=== PATIENT | female | born 1975 | race Caucasian/White ===

== ENCOUNTER 2016-11-22 16:15 | Emergency (ER) | payer OTHER ==
[2016-03-19 13:08] VITALS: BMI 26.9
[~2016-11-22 16:15] MED LIST: BENTYL 20 MG TA20 MG; BENTYL 20 MG TA20 MG PO; ESGIC TABLET1 TAB PO; FLAGYL500 MG PO; FLORAJEN3 CAPS460 MG PO; HYDROCODONE-APA1 TAB PO; KLONOPIN0.5 MG PO; LEVAQUIN750 MG PO; PREVACID15 MG PO; RESTORIL15 MG PO; TYLENOL #4 W/CO1 TAB PO; ULTRAM50 MG PO; VANCOMYCIN250 MG/51 PO; ZOFRAN8 MG PO
== END 2016-11-22 18:01 | disposition home or self-care (01) ==
LOC: D.ER 16:15
DX: G43.909 Migraine, unspecified, not intractable, without status migrainosus (principal)

== ENCOUNTER → 2016-11-30 08:16 | Outpatient (CLI) | payer OTHER ==
[2016-03-19 13:08] VITALS: BMI 26.9
== END | disposition home or self-care (01) ==
LOC: D.NM 08:16
DX: R10.11 Right upper quadrant pain (principal)

== ENCOUNTER → 2016-12-06 10:34 | Outpatient (CLI) | payer OTHER ==
[2016-03-19 13:08] VITALS: BMI 26.9
== END | disposition home or self-care (01) ==
LOC: D.NM 10:34
DX: R10.11 Right upper quadrant pain (principal)

== ENCOUNTER 2017-06-01 17:24 | Emergency (ER) | payer OTHER ==
[2016-03-19 13:08] VITALS: BMI 26.9
[2017-06-01 17:46] LABS: APPEARANCE HAZY (CLEAR); COLOR YELLOW (YELLOW); GLUCOSE NEGATIVE (NEGATIVE); NITRITE NEGATIVE (NEGATIVE); PROTEIN NEGATIVE (NEGATIVE); SPECIFIC GRAVITY 1.005 (1.005-1.020)
[2017-06-01 17:47] LABS: BILIRUBIN NEGATIVE (NEGATIVE); KETONE NEGATIVE (NEGATIVE); UROBILINOGEN NORMAL (NORMAL)
[2017-06-01 18:04] LABS: BASOPHILS 0.2 % (0-2); EOSINOPHILS 0.8 % (0-7); HEMATOCRIT 35.3 % (36.0-48.0); HEMOGLOBIN 11.3 g/dL (12-16); IMMATURE GRANULOCYTES 0.4 % (0-5); LYMPHOCYTES 6.7 % (15-50); MCH 29.3 pg (26.0-34.0); MCV 91.5 fL (80.0-100.0); MEAN PLATELET VOLUME 10.2 fL (7.4-10.4); MONOCYTES 6.8 % (2-11); NEUTROPHILS 85.1 % (40-80); PLATELET COUNT 307 10x3/uL (130-400); RBC 3.86 10x6/uL (4.00-5.40); RDW 13.5 % (11.5-14.5); WBC 9.3 10x3/uL (4.8-10.8)
[2017-06-01 18:17] LABS: ALBUMIN 3.3 g/dL (3.4-5.0); ANION GAP 9.6 mmol/L (8-16); BILIRUBIN - TOTAL 0.2 mg/dL (0.2-1.3); CALCIUM 9.1 mg/dL (8.5-10.1); CARBON DIOXIDE 29.5 mmol/L (21.0-32.0); CREATININE - SERUM 0.9 mg/dL (0.6-1.3); POTASSIUM - SERUM 3.1 mmol/L (3.5-5.1); PROTEIN - SERUM 7.6 g/dL (6.4-8.2)
[2017-06-01 18:21] LABS: AMYLASE - SERUM 37 U/L (25-115); LIPASE 131 U/L (73-393)
== END 2017-06-01 19:10 | disposition home or self-care (01) ==
LOC: D.ER 17:24
PROVIDERS: Family Medicine; Nurse Practitioner Family
DX: B34.9 Viral infection, unspecified (principal); R05 Cough; R11.10 Vomiting, unspecified; I10 Essential (primary) hypertension

== ENCOUNTER 2017-06-03 08:07 | Emergency (ER) | payer OTHER ==
[2016-03-19 13:08] VITALS: BMI 26.9
== END 2017-06-03 09:11 | disposition home or self-care (01) ==
LOC: D.ER 08:07
DX: J09.X2 Influenza due to identified novel influenza A virus with other respiratory manifestations (principal); I10 Essential (primary) hypertension

== ENCOUNTER 2017-07-11 10:27 | Emergency (ER) | payer OTHER ==
[2016-03-19 13:08] VITALS: BMI 26.9
== END 2017-07-11 13:24 | disposition home or self-care (01) ==
LOC: D.ER 10:27
DX: J20.9 Acute bronchitis, unspecified (principal); F17.200 Nicotine dependence, unspecified, uncomplicated

== ENCOUNTER 2018-01-04 13:36 | Emergency (ER) | payer OTHER ==
[~2018-01-04] VITALS: Ht 165.1 cm; Wt 77.3 kg
[2018-01-04 13:48] VITALS: BP 121/83; Ht 165.1 cm; Wt 77.3 kg
[2018-01-04] MEDS ORDERED: EFFEXOR75 MG PO (13:52)
[2018-01-04] MEDS ORDERED: LISINOPRIL-HCTZ1 TA2 PO (13:53)
[2018-01-04 14:13] LABS: APPEARANCE CLOUDY (CLEAR); BILIRUBIN NEGATIVE (NEGATIVE); COLOR PINK (YELLOW); GLUCOSE NEGATIVE (NEGATIVE); KETONE NEGATIVE (NEGATIVE); NITRITE NEGATIVE (NEGATIVE); PROTEIN TRACE mg/dL (NEGATIVE); SPECIFIC GRAVITY 1.005 (1.005-1.020); UROBILINOGEN NORMAL (NORMAL)
[2018-01-04 14:14] LABS: WHITE CELLS - URINE 0-5 /hpf (0-5)
[2018-01-04 14:15] LABS: BACTERIA FEW /hpf (NONE SEEN); EPITHELIAL CELLS 0-5 /hpf (0-5)
[2018-01-04 14:18] LABS: BASOPHILS 0.7 % (0-2); EOSINOPHILS 0.2 % (0-7); HEMATOCRIT 33.1 % (36.0-48.0); HEMOGLOBIN 10.5 g/dL (12-16); IMMATURE GRANULOCYTES 0.2 % (0-5); LYMPHOCYTES 25.8 % (15-50); MCH 26.4 pg (26.0-34.0); MCHC 31.7 g/dL (31.0-37.0); MCV 83.4 fL (80.0-100.0); MEAN PLATELET VOLUME 9.7 fL (7.4-10.4); MONOCYTES 6.8 % (2-11); NEUTROPHILS 66.3 % (40-80); PLATELET COUNT 272 10x3/uL (130-400); RBC 3.97 10x6/uL (4.00-5.40); RDW 15.2 % (11.5-14.5); WBC 9.7 10x3/uL (4.8-10.8)
[2018-01-04 14:33] LABS: ANION GAP 12.3 mmol/L (8-16); BILIRUBIN - TOTAL 0.29 mg/dL (0.2-1.3); CALCIUM 9.3 mg/dL (8.5-10.1); CARBON DIOXIDE 28.9 mmol/L (21.0-32.0); POTASSIUM - SERUM 3.2 mmol/L (3.5-5.1); PROTEIN - SERUM 8.7 g/dL (6.4-8.2)
== END 2018-01-04 15:30 | disposition home or self-care (01) ==
LOC: D.ER 13:36
PROVIDERS: Emergency Medicine
DX: R10.9 Unspecified abdominal pain (principal)

== ENCOUNTER 2018-02-03 18:11 | Inpatient (IN) | payer OTHER ==
[~2018-02-03] VITALS: Ht 165.1 cm; Wt 77.1 kg
[~2018-02-03 18:11] MED LIST changes: +EFFEXOR75 MG PO; +LISINOPRIL-HCTZ1 TA2 PO
[2018-02-03 19:00] VITALS: BP 131/89
[2018-02-03 19:09] LABS: BASOPHILS 0.4 % (0-2); EOSINOPHILS 0.1 % (0-7); HEMATOCRIT 36.6 % (36.0-48.0); HEMOGLOBIN 11.8 g/dL (12-16); IMMATURE GRANULOCYTES 0.4 % (0-5); LYMPHOCYTES 21.7 % (15-50); MCH 27.3 pg (26.0-34.0); MCHC 32.2 g/dL (31.0-37.0); MCV 84.5 fL (80.0-100.0); MEAN PLATELET VOLUME 9.9 fL (7.4-10.4); NEUTROPHILS 70.4 % (40-80); RBC 4.33 10x6/uL (4.00-5.40); RDW 16.7 % (11.5-14.5); WBC 15.4 10x3/uL (4.8-10.8)
[2018-02-03 19:12] LABS: PLATELET COUNT 327 10x3/uL (130-400)
[2018-02-03 19:38] LABS: ALBUMIN 4.1 g/dL (3.4-5.0); ANION GAP 13.3 mmol/L (8-16); BILIRUBIN - TOTAL 0.32 mg/dL (0.2-1.3); CALCIUM 9.7 mg/dL (8.5-10.1); CARBON DIOXIDE 26.9 mmol/L (21.0-32.0); CREATININE - SERUM 0.9 mg/dL (0.6-1.3); POTASSIUM - SERUM 3.2 mmol/L (3.5-5.1); PROTEIN - SERUM 8.4 g/dL (6.4-8.2)
[2018-02-03 20:00] VITALS: BP 146/92
[2018-02-03 22:18] LABS: APPEARANCE CLEAR (CLEAR); COLOR YELLOW (YELLOW); GLUCOSE NEGATIVE (NEGATIVE); NITRITE NEGATIVE (NEGATIVE); PROTEIN NEGATIVE (NEGATIVE)
[2018-02-03 22:19] LABS: BILIRUBIN NEGATIVE (NEGATIVE); KETONE SMALL mg/dL (NEGATIVE); UROBILINOGEN NORMAL (NORMAL)
[2018-02-03 22:21] LABS: BACTERIA FEW /hpf (NONE SEEN); RED CELLS - URINE 0-5 /hpf (0-5); WHITE CELLS - URINE 0-5 /hpf (0-5)
[2018-02-03 22:30] LABS: UDS - AMPHET NEGATIVE QUAL (NEGATIVE); UDS - BARB NEGATIVE QUAL (NEGATIVE); UDS - BENZO NEGATIVE QUAL (NEGATIVE); UDS - COCAINE NEGATIVE QUAL (NEGATIVE); UDS - OPIATE POSITIVE QUAL (NEGATIVE); UDS - PCP NEGATIVE QUAL (NEGATIVE); UDS - THC NEGATIVE QUAL (NEGATIVE)
[2018-02-04] VITALS (7 sets, daily range): BP systolic 134–154; BP diastolic 92–106
[2018-02-04 06:30] LABS: BASOPHILS 0.2 % (0-2); EOSINOPHILS 0 % (0-7); HEMATOCRIT 33.1 % (36.0-48.0); HEMOGLOBIN 10.6 g/dL (12-16); IMMATURE GRANULOCYTES 0.3 % (0-5); LYMPHOCYTES 14.4 % (15-50); MCH 26.7 pg (26.0-34.0); MCV 83.4 fL (80.0-100.0); MEAN PLATELET VOLUME 9.6 fL (7.4-10.4); MONOCYTES 5.7 % (2-11); NEUTROPHILS 79.4 % (40-80); PLATELET COUNT 306 10x3/uL (130-400); RBC 3.97 10x6/uL (4.00-5.40); RDW 16.7 % (11.5-14.5); WBC 12.8 10x3/uL (4.8-10.8)
[2018-02-04 06:46] LABS: ALBUMIN 3.5 g/dL (3.4-5.0); ALKALINE PHOSPHATASE 68 U/L (46-116); ALT (SGPT) 27 U/L (10-68); BILIRUBIN - TOTAL 0.36 mg/dL (0.2-1.3); CALC OSMOLALITY 268 mosm/kg (275-300); CARBON DIOXIDE 27.7 mmol/L (21.0-32.0); CHLORIDE - SERUM 100 mmol/L (98-107); CREATININE - SERUM 0.8 mg/dL (0.6-1.3); GLUCOSE 111 mg/dL (74-106); POTASSIUM - SERUM 3.3 mmol/L (3.5-5.1); PROTEIN - SERUM 7.9 g/dL (6.4-8.2); SODIUM 135 mmol/L (136-145); UREA NITROGEN 7 mg/dL (7-18); eGFR NON AFRICAN AMERICAN 83 mL/min (90-120)
[2018-02-04 16:48] LABS: % SATURATION 13 % (15-55); IRON 53 ug/dl (35-150); TOTAL IRON BIND CAPACITY 390 ug/dl (260-445); UNSAT IRON BIND CAPACITY 337 ug/dl (150-375)
[2018-02-05] VITALS: BP 138/93
[2018-02-05 04:57] VITALS: BP 128/90
[2018-02-05 07:20] LABS: BASOPHILS 0.5 % (0-2); EOSINOPHILS 0.5 % (0-7); HEMATOCRIT 29.1 % (36.0-48.0); HEMOGLOBIN 9.2 g/dL (12-16); IMMATURE GRANULOCYTES 0.2 % (0-5); LYMPHOCYTES 25.4 % (15-50); MCH 26.8 pg (26.0-34.0); MCHC 31.6 g/dL (31.0-37.0); MCV 84.8 fL (80.0-100.0); MEAN PLATELET VOLUME 9.7 fL (7.4-10.4); NEUTROPHILS 65.4 % (40-80); PLATELET COUNT 261 10x3/uL (130-400); RBC 3.43 10x6/uL (4.00-5.40); RDW 16.9 % (11.5-14.5); WBC 9.6 10x3/uL (4.8-10.8)
[2018-02-05 07:35] LABS: BILIRUBIN - TOTAL 0.33 mg/dL (0.2-1.3); CALCIUM 8.7 mg/dL (8.5-10.1); CARBON DIOXIDE 32.2 mmol/L (21.0-32.0); CREATININE - SERUM 0.9 mg/dL (0.6-1.3); MAGNESIUM - SERUM 1.9 mg/dL (1.8-2.4); POTASSIUM - SERUM 3.2 mmol/L (3.5-5.1); PROTEIN - SERUM 6.4 g/dL (6.4-8.2)
[2018-02-05 08:16] VITALS: BP 137/92
[2018-02-05 12:01] VITALS: BP 111/70
[2018-02-05 13:25] VITALS: Ht 165.1 cm; Wt 77.1 kg
[2018-02-05] MEDS ORDERED: VANCOMYCIN250 MG/51 PO (14:00)
[2018-02-05] MEDS ORDERED: FLAGYL500 MG PO (14:02)
[2018-02-06 08:21] LABS: FOLATE (FOLIC ACID) - SERUM 15.6 ng/mL (>3.0)
== END 2018-02-05 17:24 | disposition home or self-care (01) | DRG 372 ==
LOC: D.ER 18:11 → D.MS 21:19
PROVIDERS: Family Medicine; Internal Medicine Gastroenterology; Internal Medicine Nephrology
DX: A04.71 Enterocolitis due to Clostridium difficile, recurrent (principal); E87.1 Hypo-osmolality and hyponatremia; M62.89 Other specified disorders of muscle; I10 Essential (primary) hypertension; F41.9 Anxiety disorder, unspecified; K21.9 Gastro-esophageal reflux disease without esophagitis; R16.0 Hepatomegaly, not elsewhere classified; K44.9 Diaphragmatic hernia without obstruction or gangrene; D50.9 Iron deficiency anemia, unspecified; E87.6 Hypokalemia

== ENCOUNTER 2018-06-17 20:12 | Emergency (ER) | payer OTHER ==
[~2018-06-17] VITALS: Ht 165.1 cm; Wt 79.5 kg
[2018-06-17 20:19] VITALS: Ht 165.1 cm; Wt 79.5 kg
[2018-06-17] MEDS ORDERED: VOLTAREN75 MG PO (21:33)
[2018-06-17 22:17] VITALS: BP 154/105
== END 2018-06-17 22:19 | disposition home or self-care (01) ==
LOC: D.ER 20:12
DX: K04.7 Periapical abscess without sinus (principal); K08.89 Other specified disorders of teeth and supporting structures; R51 Headache; I10 Essential (primary) hypertension

== ENCOUNTER 2018-08-03 01:42 | Emergency (ER) | payer OTHER ==
[~2018-08-03] VITALS: Ht 165.1 cm; Wt 75.0 kg
[~2018-08-03 01:42] MED LIST changes: +VOLTAREN75 MG PO
[2018-08-03 01:46] VITALS: Ht 165.1 cm; Wt 75.0 kg
[2018-08-03] MEDS ORDERED: TYLENOL W/CODEI1 TAB PO (02:12)
[2018-08-03 02:50] VITALS: BP 138/85
== END 2018-08-03 02:45 | disposition home or self-care (01) ==
LOC: D.ER 01:42
DX: K04.7 Periapical abscess without sinus (principal); I10 Essential (primary) hypertension; K21.9 Gastro-esophageal reflux disease without esophagitis

== ENCOUNTER 2018-08-09 16:42 | Emergency (ER) | payer OTHER ==
[~2018-08-09] VITALS: Ht 165.1 cm; Wt 79.6 kg
[~2018-08-09 16:42] MED LIST changes: +TYLENOL W/CODEI1 TAB PO
[2018-08-09 16:55] VITALS: Ht 165.1 cm; Wt 79.6 kg
[2018-08-09] MEDS ORDERED: TALWIN NX1 TAB PO (17:40)
[2018-08-09] MEDS ORDERED: CLEOCIN HCL300 MG PO (17:40)
[2018-08-09 18:19] VITALS: BP 128/69
== END 2018-08-09 18:19 | disposition home or self-care (01) ==
LOC: D.ER 16:42
DX: K04.7 Periapical abscess without sinus (principal); K08.89 Other specified disorders of teeth and supporting structures; I10 Essential (primary) hypertension

== ENCOUNTER 2018-08-22 20:01 | Emergency (ER) | payer OTHER ==
[~2018-08-22] VITALS: Ht 165.1 cm; Wt 75.0 kg
[~2018-08-22 20:01] MED LIST changes: +CLEOCIN HCL300 MG PO; +TALWIN NX1 TAB PO
[2018-08-22 20:06] VITALS: BP 137/95; Ht 165.1 cm; Wt 75.0 kg
[2018-08-22] MEDS ORDERED: TYLENOL W/CODEI1 TAB PO (22:41)
[2018-08-22] MEDS ORDERED: PENICILLIN V P500 MG PO (22:41)
== END 2018-08-22 22:54 | disposition home or self-care (01) ==
LOC: D.ER 20:01
DX: K02.9 Dental caries, unspecified (principal); K05.6 Periodontal disease, unspecified; I10 Essential (primary) hypertension

== ENCOUNTER 2018-10-17 20:30 | Emergency (ER) | payer OTHER ==
[~2018-10-17] VITALS: Ht 165.1 cm; Wt 79.5 kg
[~2018-10-17 20:30] MED LIST changes: +PENICILLIN V P500 MG PO
[2018-10-17 20:38] VITALS: Ht 165.1 cm; Wt 79.5 kg
[2018-10-17] MEDS ORDERED: PRINIVIL10 MG PO (20:40)
[2018-10-17] MEDS ORDERED: HYDROCHLOROTH12.5 M1 PO (20:40)
[2018-10-17] MEDS ORDERED: AMOXICILLIN500 M1 PO (22:36)
[2018-10-17] MEDS ORDERED: TYLENOL W/CODEI1 TAB PO (22:36)
[2018-10-17 22:44] VITALS: BP 146/96
== END 2018-10-17 22:45 | disposition home or self-care (01) ==
LOC: D.ER 20:30
DX: K04.7 Periapical abscess without sinus (principal); K08.89 Other specified disorders of teeth and supporting structures

== ENCOUNTER 2018-10-21 19:03 | Emergency (ER) | payer OTHER ==
[~2018-10-21] VITALS: Ht 165.1 cm; Wt 79.5 kg
[~2018-10-21 19:03] MED LIST changes: +AMOXICILLIN500 M1 PO; +HYDROCHLOROTH12.5 M1 PO; +PRINIVIL10 MG PO
[2018-10-21 19:06] VITALS: Ht 165.1 cm; Wt 79.5 kg
[2018-10-21] MEDS ORDERED: PENICILLIN V P500 MG PO (19:31)
[2018-10-21] MEDS ORDERED: TYLENOL W/CODEI1 TAB PO (19:31)
[2018-10-21] MEDS ORDERED: ZOFRAN8 MG PO (19:34)
[2018-10-21 20:10] VITALS: BP 146/102
== END 2018-10-21 20:12 | disposition home or self-care (01) ==
LOC: D.ER 19:03
DX: K08.89 Other specified disorders of teeth and supporting structures (principal)

== ENCOUNTER 2019-04-24 17:10 | Emergency (ER) | payer OTHER ==
[~2019-04-24] VITALS: Ht 165.1 cm; Wt 77.3 kg
[2019-04-24 17:24] VITALS: BP 146/79; Ht 165.1 cm; Wt 77.3 kg
[2019-04-24 18:21] LABS: BASOPHILS 0.9 % (0-2); EOSINOPHILS 1.4 % (0-7); HEMATOCRIT 33.5 % (36.0-48.0); HEMOGLOBIN 10.5 g/dL (12-16); IMMATURE GRANULOCYTES 0.1 % (0-5); LYMPHOCYTES 28.3 % (15-50); MCH 27.7 pg (26.0-34.0); MCHC 31.3 g/dL (31.0-37.0); MCV 88.4 fL (80.0-100.0); MEAN PLATELET VOLUME 9.6 fL (7.4-10.4); MONOCYTES 5.6 % (2-11); NEUTROPHILS 63.7 % (40-80); RBC 3.79 10x6/uL (4.00-5.40); RDW 14.3 % (11.5-14.5); WBC 10.3 10x3/uL (4.8-10.8)
[2019-04-24 18:22] LABS: PLATELET COUNT 407 10x3/uL (130-400)
[2019-04-24 18:23] LABS: APPEARANCE CLEAR (CLEAR); BILIRUBIN NEGATIVE (NEGATIVE); COLOR YELLOW (YELLOW); GLUCOSE NEGATIVE (NEGATIVE); KETONE NEGATIVE (NEGATIVE); NITRITE NEGATIVE (NEGATIVE); PROTEIN NEGATIVE (NEGATIVE); SPECIFIC GRAVITY 1.005 (1.005-1.020); UROBILINOGEN NORMAL (NORMAL)
[2019-04-24 18:27] LABS: BACTERIA FEW /hpf (NEGATIVE); EPITHELIAL CELLS 0-5 /hpf (0-5); RED CELLS - URINE 0-5 /hpf (0-5); WHITE CELLS - URINE 0-5 /hpf (NEGATIVE)
[2019-04-24 18:29] LABS: ANION GAP 8.4 mmol/L (8-16); CALCIUM 8.9 mg/dL (8.5-10.1); CARBON DIOXIDE 31.5 mmol/L (21.0-32.0); CREATININE - SERUM 0.9 mg/dL (0.6-1.3); POTASSIUM - SERUM 3.9 mmol/L (3.5-5.1)
[2019-04-24 18:35] LABS: ALBUMIN 3.7 g/dL (3.4-5.0); BILIRUBIN - TOTAL 0.17 mg/dL (0.2-1.3); PROTEIN - SERUM 7.6 g/dL (6.4-8.2)
== END 2019-04-24 19:53 | disposition left against medical advice (07) ==
LOC: D.ER 17:10
PROVIDERS: Family Medicine
DX: R10.9 Unspecified abdominal pain (principal); R07.9 Chest pain, unspecified

== ENCOUNTER → 2019-04-29 10:04 | Outpatient (CLI) | payer OTHER ==
[2019-04-24 17:24] VITALS: BMI 28.3
[~2019-04-29 10:04] MED LIST changes: +BENTYL10 MG PO; +COLACE100 MG PO; +EFFEXOR XR150 MG PO; +HYDROCODON-ACE1 EAC7 PO; +KLONOPIN1 MG PO; +LISINOPRIL-HCT1 EAC4 PO; +OMEPRAZOLE40 MG PO; +PROBIOTIC BLEN1 EACH PO; +ZANAFLEX2 M1 PO
== END | disposition home or self-care (01) ==
LOC: D.RAD 10:04
PROVIDERS: ATTEND Internal Medicine Gastroenterology
DX: R10.12 Left upper quadrant pain (principal)

== ENCOUNTER 2019-05-09 02:38 | Observation (INO) | payer OTHER ==
[~2019-05-09] VITALS: Ht 165.1 cm; Wt 75.0 kg
[~2019-05-09 02:38] MED LIST changes: -BENTYL10 MG PO; -COLACE100 MG PO; -EFFEXOR XR150 MG PO; -HYDROCODON-ACE1 EAC7 PO; -KLONOPIN1 MG PO; -LISINOPRIL-HCT1 EAC4 PO; -OMEPRAZOLE40 MG PO; -PROBIOTIC BLEN1 EACH PO; -ZANAFLEX2 M1 PO
[2019-05-09 03:12] LABS: APPEARANCE CLEAR (CLEAR); BILIRUBIN NEGATIVE (NEGATIVE); COLOR YELLOW (YELLOW); GLUCOSE NEGATIVE (NEGATIVE); KETONE NEGATIVE (NEGATIVE); NITRITE NEGATIVE (NEGATIVE); PROTEIN NEGATIVE (NEGATIVE); UROBILINOGEN NORMAL (NORMAL)
[2019-05-09 03:15] LABS: BASOPHILS 0.7 % (0-2); EOSINOPHILS 1.2 % (0-7); HEMATOCRIT 32.6 % (36.0-48.0); IMMATURE GRANULOCYTES 0.3 % (0-5); LYMPHOCYTES 29.1 % (15-50); MCH 27.2 pg (26.0-34.0); MCHC 30.7 g/dL (31.0-37.0); MCV 88.8 fL (80.0-100.0); MEAN PLATELET VOLUME 9.3 fL (7.4-10.4); NEUTROPHILS 61.7 % (40-80); PLATELET COUNT 389 10x3/uL (130-400); RBC 3.67 10x6/uL (4.00-5.40); WBC 12.3 10x3/uL (4.8-10.8)
[2019-05-09 03:21] LABS: UDS - AMPHET NEGATIVE QUAL (NEGATIVE); UDS - BARB NEGATIVE QUAL (NEGATIVE); UDS - BENZO NEGATIVE QUAL (NEGATIVE); UDS - COCAINE NEGATIVE QUAL (NEGATIVE); UDS - OPIATE NEGATIVE QUAL (NEGATIVE); UDS - PCP NEGATIVE QUAL (NEGATIVE); UDS - THC NEGATIVE QUAL (NEGATIVE)
[2019-05-09 03:24] LABS: ANION GAP 13.5 mmol/L (8-16); CALCIUM 8.8 mg/dL (8.5-10.1); CARBON DIOXIDE 26.8 mmol/L (21.0-32.0); CREATININE - SERUM 0.9 mg/dL (0.6-1.3); POTASSIUM - SERUM 3.3 mmol/L (3.5-5.1)
[2019-05-09 03:29] LABS: ALBUMIN 3.3 g/dL (3.4-5.0); BILIRUBIN - TOTAL 0.24 mg/dL (0.2-1.3); PROTEIN - SERUM 7.6 g/dL (6.4-8.2)
--- NOTE | 2019-05-09 04:22 | NUR ---
PT LAYING IN BED SUPINE WITH EYES CLOSED. NO SIGNS DISTRESS NOTED. RESPIRATIONS APPEAR EVEN AND UNLABORED AT 16/MIN. PT STATES PAIN 8/10 LUQ PAIN. EDP NOTIFIED. NO VERBAL ORDERS GIVEN. WILL CONTINUE TO MONITOR.
--- NOTE | 2019-05-09 05:50 | NUR ---
RECEIVED PT TO FLOOR FROM ER VIA STRETCHER. PT AMBULATED TO BED FROM STRETCHER. C/O PAIN 02/14, SAYS "MORPHINE DIDN'T REALLY WORK" AND ASKED NURSE AND HAND SHAPER IF SHE COULD GET DILAUDID. REVIEWED HOME MEDS AND HISTORY. NO OTHER NEEDS. WILL CONTINUE TO MONITOR.
[2019-05-09] MEDS ORDERED: EFFEXOR XR150 MG PO (06:01)
[2019-05-09] MEDS ORDERED: KLONOPIN1 MG PO (06:02)
[2019-05-09] MEDS ORDERED: OMEPRAZOLE40 MG PO (06:03)
[2019-05-09] MEDS ORDERED: LISINOPRIL-HCT1 EAC4 PO (06:05)
[2019-05-09] MEDS ORDERED: ZANAFLEX2 M1 PO (06:05)
[2019-05-09] MEDS ORDERED: BENTYL10 MG PO (06:08)
[2019-05-09] MEDS ORDERED: FLAGYL500 MG PO (06:09)
[2019-05-09] MEDS ORDERED: PROBIOTIC BLEN1 EACH PO (06:17)
[2019-05-09 07:02] VITALS: BP 132/95; BMI 27.5
--- NOTE | 2019-05-09 08:07 | NUR ---
REC PT LYING IN BED AOX4 RESP EVEN AND UNLABORED LUNG SOUNDS CLEAR HEART RATE REGULAR NO EDEMA NOTED TO BLE. SKIN PINK WARM AND DRY WITH GOOD TURGOR. PPPX4 BS+X4 QUADS. MORPHINE 2MG GIVEN IV OVER 3 MINUTE PUSH FOR C/0 OF PAIN OF 7 AT THIS TIME. WILL CONTINUE TO MONITOR BED AT LOWEST SETTING WITH BRAKES LOCK CALL LIGHT WITHIN REACH WILL CONTINUE TO MONTIOR
[2019-05-09 08:12] VITALS: BP 128/79
[2019-05-09 13:33] VITALS: BP 119/81
[2019-05-09 16:23] VITALS: BP 115/75
--- NOTE | 2019-05-09 19:00 | NUR ---
PATIENT ALERT AND ORIENTED. PATIENT ANXIOUS ABOUT SURGERY TOMORROW. SPOKE WITH PATIENT FOR SEVERAL MINUTES ABOUT WORRIES. COMPLAINTS OF ABDOMINAL PAIN. HAS MORPHINE VECTOR CONTROL ASSISTANT 07/17/09 AND NS @ 125. LEFT AC IV THAT IS PATENT. SPOKE WITH PATIENT ABOUT STOOL SAMPLE THATS NEEDED AND ALSO ABOUT CHG BATH PRIOR TO SURGERY. PATIENT VERBALIZES UNDERSTANDING. DENIES FURTHER NEEDS AT THIS TIME.
[2019-05-09 19:30] VITALS: Ht 165.1 cm; Wt 75.0 kg
[2019-05-09 19:49] VITALS: BP 125/88
[2019-05-10] VITALS: BP 104/64
[2019-05-10 04:00] VITALS: BP 119/72
--- NOTE | 2019-05-10 04:26 | NUR ---
I have reviewed this patient and I concur with the Shift Assessment completed by the Licensed Practical Nurse today this shift.
--- NOTE | 2019-05-10 05:30 | NUR ---
HAVE MONITORED PATIENT THROUGH OUT NIGHT. 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 NO BOWEL MOVEMENT THROUGH NIGHT. STATES "NO URGES" EVEN WHEN SITTING ON TOILET. CPOC.
[2019-05-10 06:14] LABS: BASOPHILS 0.6 % (0-2); EOSINOPHILS 1.1 % (0-7); HEMOGLOBIN 10.1 g/dL (12-16); IMMATURE GRANULOCYTES 0.5 % (0-5); LYMPHOCYTES 18.3 % (15-50); MCH 26.8 pg (26.0-34.0); MCHC 29.7 g/dL (31.0-37.0); MCV 90.2 fL (80.0-100.0); MEAN PLATELET VOLUME 9.6 fL (7.4-10.4); MONOCYTES 5.7 % (2-11); NEUTROPHILS 73.8 % (40-80); PLATELET COUNT 376 10x3/uL (130-400); RBC 3.77 10x6/uL (4.00-5.40); RDW 15.1 % (11.5-14.5); WBC 13.1 10x3/uL (4.8-10.8)
[2019-05-10 06:57] LABS: ALKALINE PHOSPHATASE 77 U/L (46-116); ALT (SGPT) 31 U/L (10-68); CALC OSMOLALITY 282 mosm/kg (275-300); CARBON DIOXIDE 26.8 mmol/L (21.0-32.0); CHLORIDE - SERUM 107 mmol/L (98-107); CREATININE - SERUM 0.7 mg/dL (0.6-1.3); GLUCOSE 98 mg/dL (74-106); POTASSIUM - SERUM 3.9 mmol/L (3.5-5.1); PROTEIN - SERUM 6.6 g/dL (6.4-8.2); SODIUM 143 mmol/L (136-145); UREA NITROGEN 8 mg/dL (7-18); eGFR NON AFRICAN AMERICAN > 90 mL/min (90-120)
--- NOTE | 2019-05-10 08:01 | NUR ---
ALERT AND ORIENTED, RESTING IN BED. FAMILY AT BEDSIDE. NO C/O PAIN. NO S/S OF ACUTE DISTRESS NOTED. SCHEDULED FOR SURGERY THIS AM. IV TO RIGHT WRIST, NS INFUSING @ 125ML/HR. SITE PATENT WITHOUT REDNESS OR SWELLING. MORPHINE AUTO CARRIER DRIVER MANAGING PAIN AT THIS TIME. DENIES ANY NEEDS AT THIS TIME. CALL LIGHT IN REACH. WILL CONTINUE TO MONITOR.
[2019-05-10 08:19] VITALS: BP 147/93
--- NOTE | 2019-05-10 08:46 | NUR ---
PATIENT TAKEN TO SURGERY. PRE-OP MEDS GIVEN. TAKEN VIA BED, ACCOMPANIED BY OR STAFF.
[2019-05-10 08:51] LABS: HCG SERUM NEGATIVE (NEGATIVE)
--- NOTE | 2019-05-10 10:29 | NUR ---
I have reviewed this patient and I concur with the Shift Assessment completed by the Licensed Practical Nurse today this shift.
[2019-05-10 10:45] VITALS: BP 134/84
--- NOTE | 2019-05-10 10:47 | NUR ---
RECEIVED PATIENT FROM RECOVERY, ALERT AND ORIENTED. SLIGHTLY DROWSY. VITALS STABLE. ON 2L O2, NC STATING @ 96%. NO C/O PAIN. NO S/S OF ACUTE DISTRESS NOTED. 3 LAP SITES ON ABDOMEN, COVERED WITH BANDAIDS. DENIES ANY NEEDS AT THIS TIME. CALL LIGHT IN REACH. FAMILY AT BEDSIDE. WILL CONTINUE TO MONITOR.
[2019-05-10 12:40] VITALS: BP 128/81
[2019-05-10 16:22] VITALS: BP 114/73
[2019-05-10] MEDS ORDERED: COLACE100 MG PO (16:56)
[2019-05-10] MEDS ORDERED: HYDROCODON-ACE1 EAC7 PO (16:57)
--- NOTE | 2019-05-12 10:58 | OP ---
PATIENT NAME: EVETTE BENNETT MEDICAL RECORD: [id number] :73 LOCATION:[id number] ADMISSION DATE:05/09/19 SURGEON: KEELY MIRANDA MD DATE OF OPERATION: 05/10/2019 PREOPERATIVE DIAGNOSES: 1. Migratory abdominal pain. 2. CT evidence of acute appendicitis. POSTOPERATIVE DIAGNOSES: 1. Migratory abdominal pain. 2. CT evidence of acute appendicitis. 3. Uterine fibroid. 4. Adhesions in the left upper quadrant. PROCEDURE: Laparoscopic appendectomy. SURGEON: Keely Miranda MD BEHAVIORAL HEALTH CONSULTANT: None. BLOOD LOSS: Minimal. ANESTHESIA: General. COMPLICATIONS: None. The risks, possible complications, and alternatives to the procedure were explained to the patient. She elects to proceed. The discussion specifically included, but was not limited to, bleeding requiring emergency reoperation, infection, intestinal injury as well as staple line leakage. OPERATIVE COURSE: The patient was conveyed to the operating room electively on 05/10/2019. General anesthesia was induced by the anesthesia staff. The abdomen was sterilely prepped and draped. A small skin hany was accomplished in the left upper quadrant. A Veress needle was inserted through the skin hany into the peritoneal cavity. CO2 insufflation was begun. Once a sufficient pneumoperitoneum had been achieved, a 5-mm trocar was inserted in the left lower quadrant. Through an incision at the umbilicus, a 12-mm trocar was inserted. Through another incision in the right lower quadrant, a 5-mm trocar was inserted. During insertion of the Veress needle and all trocars, there appeared to have been no injury to the bowels, any intraperitoneal or retroperitoneal structures. An abdominal survey was undertaken. There was what appeared to be a small central uterine fibroid. Probably some nabothian cysts off of the fallopian tubes. No purulence. No evidence of peritonitis. No abscess. There were some adhesions in the left upper quadrant and interestingly, this is right where the patient has been having some pain. These adhesions were taken down utilizing the laparoscopic EnSeal device. I ran the last 2 feet of small bowel and I noted no evidence of any inflammatory process and no evidence of a Meckel's diverticulum. The appendix was grasped. It was dissected free from some retroperitoneal OPERATIVE REPORT [id number] EVETTE BENNETT bands. This was a retrocecal appendix. I am uncertain whether acute appendicitis is present. If is present, it is certainly early. A window was created in the mesoappendix. I stapled across the tip of the cecum with an Endo-CARROL type stapler utilizing a blue load. There was no impingement upon the ileocecal valve. I took down the mesoappendix with the laparoscopic EnSeal device. This was placed within a bag retrieval device and was withdrawn through the umbilical fascia defect. The 12-mm trocar was replaced and the abdomen was reinsufflated. I irrigated and aspirated in the right lower quadrant and the right upper quadrant. This appendix was actually a right upper quadrant more than it was in the lower quadrant. Utilizing the Chava-Sona suture closure device and 0 Vicryl sutures, I closed the fascia at the umbilicus. All the trocars were removed and the abdomen desufflated. The skin at the umbilicus was closed with interrupted 4-0 Vicryl Rapide sutures. The other skin incisions were closed with interrupted intracuticular 4-0 Vicryls. Benzoin and Steri-Strips were applied. The patient was then extubated and conveyed to post-anesthesia care unit where she was in stable condition. I plan that she can be dismissed home later today. TRANSINT:[id number] Voice Confirmation ID: [id number] DOCUMENT ID: [id number] KEELY MIRANDA MD at 1058 CC: NINA STRICKLAND [id number] DICTATION DATE: 05/10/19 1427 FINISHING SUPERVISOR PLASTIC SHEETS: 05/10/192014 DIS IN 05/10/19 [facility] [address] [place] [address]
== END 2019-05-10 17:57 | disposition home or self-care (01) ==
LOC: D.ER 02:38 → OBSVTIME 04:38 → D.MS 04:38
PROVIDERS: Anesthesiology; Family Medicine; ADMIT Family Medicine; ATTEND Family Medicine
DX: K35.80 Unspecified acute appendicitis (principal); E87.6 Hypokalemia; K52.9 Noninfective gastroenteritis and colitis, unspecified; F32.9 Major depressive disorder, single episode, unspecified

== ENCOUNTER 2019-06-13 13:15 | Emergency (ER) | payer OTHER ==
[~2019-06-13] VITALS: Ht 165.1 cm; Wt 81.8 kg
[~2019-06-13 13:15] MED LIST changes: +BENTYL10 MG PO; +COLACE100 MG PO; +EFFEXOR XR150 MG PO; +HYDROCODON-ACE1 EAC7 PO; +KLONOPIN1 MG PO; +LISINOPRIL-HCT1 EAC4 PO; +OMEPRAZOLE40 MG PO; +PROBIOTIC BLEN1 EACH PO; +ZANAFLEX2 M1 PO
[2019-06-13 13:27] VITALS: Ht 165.1 cm; Wt 81.8 kg
[2019-06-13 15:17] VITALS: BP 135/92
== END 2019-06-13 15:19 | disposition home or self-care (01) ==
LOC: D.ER 13:15
DX: M25.532 Pain in left wrist (principal); M25.531 Pain in right wrist; I10 Essential (primary) hypertension

== ENCOUNTER 2019-06-16 17:04 | Emergency (ER) | payer OTHER ==
[~2019-06-16] VITALS: Ht 165.1 cm; Wt 81.8 kg
[2019-06-16 17:23] VITALS: Ht 165.1 cm; Wt 81.8 kg
[2019-06-16] MEDS ORDERED: PREDNISONE50 MG PO (18:43)
[2019-06-16] MEDS ORDERED: CYCLOBENZAPRINE5 MG PO (18:43)
[2019-06-16] MEDS ORDERED: TYLENOL ARTHRI650 MG PO (18:43)
[2019-06-16 19:21] VITALS: BP 130/99
== END 2019-06-16 19:21 | disposition home or self-care (01) ==
LOC: D.ER 17:04
DX: M79.642 Pain in left hand (principal); M79.641 Pain in right hand; M25.532 Pain in left wrist; M25.531 Pain in right wrist; I10 Essential (primary) hypertension

== ENCOUNTER 2019-11-05 18:30 | Emergency (ER) | payer OTHER ==
[~2019-11-05] VITALS: Ht 165.1 cm; Wt 75.0 kg
[~2019-11-05 18:30] MED LIST changes: +CYCLOBENZAPRINE5 MG PO; +PREDNISONE50 MG PO; +TYLENOL ARTHRI650 MG PO
[2019-11-05 18:41] VITALS: Ht 165.1 cm; Wt 75.0 kg
[2019-11-05] MEDS ORDERED: CYMBALTA20 MG PO (18:46)
[2019-11-05] MEDS ORDERED: NEXIUM20 MG PO (18:47)
[2019-11-05] MEDS ORDERED: TALWIN NX1 TAB PO (19:44)
[2019-11-05] MEDS ORDERED: KEFLEX500 MG PO (19:44)
[2019-11-05 20:22] VITALS: BP 132/84
== END 2019-11-05 20:22 | disposition home or self-care (01) ==
LOC: D.ER 18:30
DX: S61.012A Laceration without foreign body of left thumb without damage to nail, initial encounter (principal); W45.8XXA Other foreign body or object entering through skin, initial encounter; Y93.9 Activity, unspecified; Y92.9 Unspecified place or not applicable; I10 Essential (primary) hypertension